=== PATIENT | female | born 1930 | race Caucasian/White ===

== ENCOUNTER → 2016-11-29 | Day surgery (SDC) | payer OTHER, MEDICARE ==
[~2016-11-29] VITALS: Ht 167.6 cm; Wt 72.6 kg
[~2016-11-29] MED LIST: ATENOLOL25 M1 PO; BENICAR20 MG PO; CRESTOR20 MG PO; FENOFIBRATE134 M1 PO; MOTRIN 400MG (400 MG PO; NORVASC2.5 M1 PO; PERCOCET 325 MG1 TAB PO
--- NOTE | 2016-11-29 09:20 | Operative Report ---
Operative/Inv Procedure Report Surgery Date: 11/29/16 Name of Procedure: cystocele repair with mesh Pre-Operative Diagnosis: cystocele that is symptomatic Post-Operative Diagnosis: same Estimated Blood Loss: 350CC Surgeon/Hard Candy Batch Mixer: ANNE KAUR MD Anesthesia: laryngeal mask airway Implants: vaginal mesh Complications: none Condition: stable Operative Indication: symptomatic cystocele Operative/Procedure Note Note: An operative dictation on patient Sondra Gallego. She was identified in the holding area and given the risks benefits and alternatives of the cystocele repair with mesh. We also discussed the possibility of occult stress urinary incontinence and checking for that in the OR and she was comfortable with me making the decision as to whether to place urethral sling at the same time. All questions were answered for her and her daughter. Patient was taken to the operating room placed on the operating table in the supine position. Timeout was performed. IV antibiotics were infused and LMA anesthesia was given. She was placed in the dorsal lithotomy position and prepped and draped in the standard sterile fashion. Herrera catheter was placed and the bladder was emptied and the Herrera was clamped and placed on the patient' s abdomen. Alton retractor was placed to allow for greater visualization of the vaginal vault. 1% lidocaine was infiltrated into the anterior vaginal wall. Incision was made in the anterior vaginal flaps are created taking care not to injure the bladder. The bladder was completely dissected free from the bladder neck down to the apex and this was done sharply and bluntly. 6 spinous processes and ligaments were palpable and cleaned off. The By mouth suture of truck driver salesperson was then opened and used to placed 0 Prolene in the sacrospinous ligament on the patient's left and right side as well as the arcus tendineus on the patient's left and right side at the level of the bladder neck. The sutures were then used to place into the Coloplast Restoril mesh. The suture was sutured into place maximal portion with 2-0 Vicryl as well as the distal portion of the bladder neck with 2-0 Vicryl suture. The mesh was secured down with the Prolene sutures seen to be in good position and well reduced. There was grossly irrigated bacitracin irrigation. Surgicel was placed into the retropubic space pm the left and right side for bleeding. Incision was closed with 2-0 Vicryl running suture locking every third suture. Indigo carmine was given when the 6 spinous sutures were tied down. Cystoscopy was performed to evaluate the bladder and to check for ureteral Deflux. There was no injury to the bladder and bilateral ureteral defects Deflux was seen on both sides with good force. Attention was then turned to the possible sling portion of the case. With the bladder full and the Herrera out, the Cred maneuver was performed and she did experience urinary incontinence. 1% lidocaine was infiltrated into the anterior vaginal wall suburethrally. Incision was made and an vaginal flaps are created taking care not to injure the urethra. The Altis Sling kit was then opened and the trochars used to place the sling into the obturator fascia on the patient's left and right side. The tension on the sling was cut and the tightening Prolene suture was then cut. There was grossly irrigated bacitracin irrigation. This incision was closed with 3-0 Vicryl running suture. There was no mesh in the vaginal fornices. Herrera was removed and a cystoscopy was performed again. There was no mesh in the bladder or the urethra. Bladder was emptied and the cystoscope was removed. 2 inch vaginal packing impregnated with bacitracin ointment was placed into the vaginal vault. The sponge and needle count were correct end the case. Patient tolerated the procedure well. Findings: NO MESH IN bladder or urethra or vaginal fornices good bilateral ureteral orifices Discharge Disposition: PACU
== END ==
LOC: STS 02:01
DX: N81.10 Cystocele, unspecified (principal); N39.3 Stress incontinence (female) (male); N39.0 Urinary tract infection, site not specified; I10 Essential (primary) hypertension; E11.9 Type 2 diabetes mellitus without complications
CPT/HCPCS: C1771; J0131; J0690; J2250

== ENCOUNTER → 2017-11-19 | Day surgery (SDC) | payer OTHER, MEDICARE ==
[~2017-11-19] VITALS: Ht 168.9 cm; Wt 73.5 kg
[~2017-11-19] MED LIST changes: +AMOXICILLIN500 M2 PO; +AUGMENTIN 875-1 EACH PO; +BENICAR20 M1 PO; -BENICAR20 MG PO; +CENTRUM SILVER1 EAC3 PO; +CRESTOR5 M1 PO; +ELIQUIS5 M1 PO; +IBUPROFEN400 M1 PO; +LOPERAMIDE2 M2 PO; +PRADAXA150 M1 PO; +PREMARIN30 GM TOP; +PROBIOTIC1 EACH PO; +SLOW-MAG71.5 MG PO; +VITAMIN B-121000 MC3 PO; +VITAMIN C500 M9 PO; +VITAMIN D1000 UNIT PO
--- NOTE | 2017-11-19 09:52 | Operative Report ---
Operative/Inv Procedure Report Surgery Date: 11/19/17 Name of Procedure: Cataract extraction with intraocular lens implantation right eye Pre-Operative Diagnosis: Age-related cataract right eye Post-Operative Diagnosis: Same Estimated Blood Loss: none Surgeon/Print Line Feeder: Miky BENJAMIN,Ap Rich Anesthesia: local monitored anesthesi Complications: None Operative/Procedure Note Note: Preoperatively the patient was noted to have 20/40 vision in the right eye with a decrease with glare testing down to 20/60. The risks, benefits, and alternatives to surgery were discussed at length with the patient. Informed consent was obtained. The patient was brought to the operating room where the right eye was prepped and draped in the normal sterile fashion. A speculum was placed on the right eye with good exposure. The axis of the limbal relaxing incision was marked. Using a nela blade at 600 depth, an incision spanning 40 degrees was made without complication. A limbal relaxing incision of equal length and depth was made 180 away. A stab incision was made using a paracentesis blade. Intracameral lidocaine was placed. Viscoelastic was used to form the anterior chamber. A clear corneal incision was made using keratome blade. A continuous curvilinear capsulorrhexis was made using a cystotome needle followed by Utrata forceps. There was no extension of the rhexis. Hydrodissection was performed using balanced salt solution. The cataract was removed using a stop and chop technique. Residual cortex was removed using coaxial irrigation and aspiration. The capsule was polished using irrigation and aspiration and the posterior capsule was cleaned using a balanced salt solution jet. There was no residual lens material inside the eye. The capsular bag was reformed using viscoelastic. An intraocular lens PCBOO of power 21.5 was verified and confirmed. It was loaded into an injector and injected into the eye. The lens was placed entirely within the capsular bag. Viscoelastic was evacuated using irrigation and aspiration. The wounds were stromally hydrated and the eye filled to physiologic pressure using balanced salt solution. Intracameral cefuroxime was placed. Speculum was removed and a shield was placed on the eye. The patient was brought to the recovery area without incident. Instructions were given to follow-up the next day for routine postoperative care.
== END ==
LOC: STS 03:34
DX: H25.9 Unspecified age-related cataract (principal); I48.91 Unspecified atrial fibrillation; Z79.01 Long term (current) use of anticoagulants; I10 Essential (primary) hypertension; Z87.891 Personal history of nicotine dependence
CPT/HCPCS: J2250; V2632

== ENCOUNTER → 2017-12-18 | Day surgery (SDC) | payer OTHER, MEDICARE ==
[~2017-12-18] VITALS: Ht 167.6 cm; Wt 73.5 kg
--- NOTE | 2017-12-18 08:32 | Operative Report ---
Operative/Inv Procedure Report Surgery Date: 12/18/17 Name of Procedure: Cataract extraction with intraocular lens implantation left eye Pre-Operative Diagnosis: Age-related cataract left eye Post-Operative Diagnosis: Same Estimated Blood Loss: none Surgeon/Hydroelectric Plant Electrician: Ap Bolaños MD Anesthesia: local monitored anesthesi Complications: None Operative/Procedure Note Note: Preoperatively the patient was noted to have 20/50 vision in the left eye . The risks, benefits, and alternatives to surgery were discussed at length with the patient. Informed consent was obtained. The patient was brought to the operating room where the left eye was prepped and draped in the normal sterile fashion. A speculum was placed on the left eye with good exposure. The axis of the limbal relaxing incision was marked. Using a nela blade at 600 depth, an incision spanning 30 degrees was made without complication. A limbal relaxing incision of equal length and depth was made 180 away.A stab incision was made using a paracentesis blade. Intracameral lidocaine was placed. Viscoelastic was used to form the anterior chamber. A clear corneal incision was made using keratome blade. A continuous curvilinear capsulorrhexis was made using a cystotome needle followed by Utrata forceps. There was no extension of the rhexis. Hydrodissection was performed using balanced salt solution. The cataract was removed using a stop and chop technique. Residual cortex was removed using coaxial irrigation and aspiration. The capsule was polished using irrigation and aspiration and the posterior capsule was cleaned using a balanced salt solution jet. There was no residual lens material inside the eye. The capsular bag was reformed using viscoelastic. An intraocular lens PCBOO of power 21.0 was verified and confirmed. It was loaded into an injector and injected into the eye. The lens was placed entirely within the capsular bag. Viscoelastic was evacuated using irrigation and aspiration. The wounds were stromally hydrated and the eye filled to physiologic pressure using balanced salt solution. Intracameral cefuroxime was placed. Speculum was removed and a shield was placed on the eye. The patient was brought to the recovery area without incident. Instructions were given to follow-up the next day for routine postoperative care.
== END ==
LOC: STS 01:08
DX: H25.9 Unspecified age-related cataract (principal); I48.91 Unspecified atrial fibrillation; Z79.01 Long term (current) use of anticoagulants; I10 Essential (primary) hypertension
CPT/HCPCS: J2250; V2632